=== PATIENT | female | born 1960 | race Asian ===

== ENCOUNTER 2019-10-07 13:10 | Outpatient (CLI) | payer OTHER ==
--- NOTE | 2019-10-14 10:34 | Mammography Report ---
BILATERAL DIGITAL SCREENING MAMMOGRAM 3D/2D: 10/07/2019 CLINICAL: Routine screening. Comparison is made to exam dated: 08/25/2014 mammogram - [facility]. The tissue of both breasts is heterogeneously dense. This may lower the sensitivity of mammography. No significant masses, calcifications, or other findings are seen in either breast. There has been no significant interval change. IMPRESSION: NEGATIVE There is no mammographic evidence of malignancy. A 1 year screening mammogram is recommended. This exam was interpreted at Station ID: [id number]. NOTE: For mammograms, a report in lay terms will be sent to the patient. Approximately 15% of breast malignancies will not be visualized mammographically. In the management of a palpable breast mass, a negative mammogram must not discourage biopsy of a clinically suspicious lesion. Electronically Signed By: Deandre Rios M.D. dddru/penrad:10/14/2019 08:16:15 ACR BI-RADS Category 1: Negative 3341F PARENCHYMAL PATTERN: (D) - The breast(s) demonstrate(s) heterogeneously dense fibroglandular maximo vigil. BI-RADS CATEGORY: (1) - 1 RECOMMENDATION: (ANNUAL) - Recommend routine annual screening mammography. [id number] 1 year screening LATERALITY: (B)
== END 2019-10-07 13:11 | disposition home or self-care (01) ==
LOC: DI.N 13:10
DX: Z12.31 Encounter for screening mammogram for malignant neoplasm of breast (principal)
CPT/HCPCS: 77063; 77067

== ENCOUNTER 2020-10-07 14:32 | Outpatient (CLI) | payer OTHER ==
--- NOTE | 2020-10-08 13:27 | Mammography Report ---
BILATERAL DIGITAL SCREENING MAMMOGRAM 3D/2D: 10/07/2020 CLINICAL: Routine screening. Comparison is made to exams dated: 10/07/2019 mammogram - [facility], 10/05/2018 [facility] mogram, 10/05/2017 mammogram, 09/19/2016 mammogram - [facility], 08/25/2014 mammogram - [facility], and 08/26/2013 mammogram - [facility]. The tissue of both breast s is heterogeneously dense. This may lower the sensitivity of mammography. No significant masses, calcifications, or other findings are seen in either breast. There has been no significant interval change. IMPRESSION: NEGATIVE There is no mammographic evidence of malignancy. A 1 year screening mammogram is recommended. This exam was interpreted at Station ID: [id number]. NOTE: For mammograms, a report in lay terms will be sent to the patient. Approximately 15% of breast malignancies will not be visualized mammographically. In the management of a palpable breast mass, a negative mammogram must not discourage biopsy of a clinically suspicious lesion. Electronically Signed By: Foreign Joseph M.D., jr/irma:10/07/2020 15:59:51 ACR BI-RADS Category 1: Negative 3341F PARENCHYMAL PATTERN: (D) - The breast(s) demonstrate(s) heterogeneously dense fibroglandular parpetey ma. BI-RADS CATEGORY: (1) - 1 RECOMMENDATION: (ANNUAL) - Recommend routine annual screening mammography. [id number] 1 year screening LATERALITY: (B)
== END 2020-10-07 14:33 | disposition home or self-care (01) ==
LOC: DI.N 14:32
DX: Z12.31 Encounter for screening mammogram for malignant neoplasm of breast (principal)

== ENCOUNTER 2020-11-23 14:13 | Emergency (ER) | payer OTHER ==
[2020-11-23 14:34] VITALS: BP 148/86
--- NOTE | 2020-11-23 15:22 | ED Physician Documentation ---
PD HPI SKIN - Stated complaint Stated Complaint: CYST UNDER RT ARM - Chief complaint Chief Complaint: Ext Problem - History obtained from History obtained from: Patient - History of Present Illness Timing - onset: How many days ago (several days) Timing - duration: Days (States she has had a small lump in the armpit area for several weeks without notable tenderness. It has gotten swollen red and tender over the last several days.) Timing - details: Gradual onset Location: Chest (right axillary area.) Quality / character: Painful, Discolored Associated symptoms: No: Fever, Myalgias, N/V/D Contributing factors: No: Insect bite /sting, Recent illness Similar symptoms before: Has not had sx before Review of Systems Constitutional: denies: Fever, Chills Respiratory: denies: Dyspnea, Cough PD PAST MEDICAL HISTORY - Past Medical History Cardiovascular: None Respiratory: None Neuro: None Endocrine/Autoimmune: None - Present Medications Home Medications: Ambulatory Orders Medication Instructions Recorded Confirmed Minocycline HCl 100 mg PO BID 7 Days #14 cap 11/23/20 - Allergies Allergies/Adverse Reactions: Allergies Allergy/AdvReac Type Severity Reaction Status Date / Time amoxicillin Allergy Rash Verified 11/23/20 14:32 PD ED PE NORMAL - Vitals Vital signs reviewed: Yes - General General: Alert and oriented X 3, No acute distress, Well developed/nourished - Cardiac Cardiac: RRR, No murmur - Respiratory Respiratory: Clear bilaterally - Derm Derm: Normal color, Warm and dry, Other (right anterior axillary area (just low of the axilla actually) with local swelling, redness and fluctuance, with tender. No draiange. It is 3 cm diameter and raised. ) Results - Vitals Vitals: Vital Signs - 24 hr 11/23/20 14:27 Temperature 36.8 C Heart Rate 89 Respiratory 18 Rate Blood Pressure 148/86 H O2 Saturation 97 Oxygen O2 Source Room air Procedures - Abscess I&D (location) right lower axillary area Preparation: Lidocaine 1%, With epi Incision: Incised with scalpel, Purulent drainage, Irrigated Other: Pt tolerated well, Dressing applied, Antibiotic prescribed PD MEDICAL DECISION MAKING - ED course Complexity details: considered differential, d/w patient Departure - Departure Disposition: 01 Home, Self Care Clinical Impression: Axillary abscess Condition: Stable Record reviewed to determine appropriate education?: Yes Instructions: ED Abscess IandD Prescriptions: Minocycline HCl 100 mg PO BID 7 Days #14 cap Comments: Have a dressing over the area to absorb any drainage. Warm moist towel to the area a few times a day to promote drainage in the next couple of days. Try to promote drainage from the area over the next couple of days. Doxycycline antibiotic twice daily for the next 5 to 7 days until this seems cleared. As the infection clears, there will still be some firmness of the area but it should not be red draining or tender. Subsequently you can follow-up with your primary care to discuss having the underlying cyst removed once the infection is cleared. Tylenol or ibuprofen if needed for pains. Transmitted the antibiotic prescription to [facility] pharmacy in [place]. Discharge Date/Time: 11/23/20 15:59
[2020-11-23] MEDS ORDERED: DOXYCYCLINE 100 MG TABLET PO STA (15:39)
[2020-11-23] MEDS ORDERED: ACETAMINOPHEN 325 MG TABLET PO STA (15:39)
== END 2020-11-23 15:59 | disposition home or self-care (01) ==
LOC: ED 14:13
DX: L02.411 Cutaneous abscess of right axilla (principal)
CPT/HCPCS: 10060; 99282; 99283; A9270

== ENCOUNTER 2021-10-11 10:09 | Outpatient (CLI) | payer OTHER ==
--- NOTE | 2021-10-11 13:08 | Mammography Report ---
BILATERAL DIGITAL SCREENING MAMMOGRAM 3D/2D: 10/11/2021 CLINICAL: Routine screening. Comparison is made to exams dated: 10/07/2020 mammogram, 10/07/2019 mammogram - [facility], 10/05/2018 mammogram, 10/05/2017 mammogram, 09/19/2016 mammogram - [facility], and 2014 mammogram - [facility]. Both breasts are heterogeneously dense, which may obscure small masses (category c / 51-75% glandula r tissue). No significant masses, calcifications, or other findings are seen in either breast. There has been no significant interval change. IMPRESSION: NEGATIVE There is no mammographic evidence of malignancy. A 1 year screening mammogram is recommended. Based on the Tyrer Cuzick model (a risk assessment model) the patients lifetime risk is 6.8% and her 10 year risk is 2.8%. According to the ACR, ACS, and NCCN guidelines, an annual breast MRI exam tom g with mammogram is recommended if the patients lifetime risk is 20% or greater. This exam was interpreted at Station ID: [id number]. NOTE: For mammograms, a report in lay terms will be sent to the patient. Approximately 15% of breast malignancies will not be visualized mammographically. In the management of a palpable breast mass, a negative mammogram must not discourage biopsy of a clinically suspicious lesion. Electronically Signed By: Ildefonso Cid M.D. aty/[email or web address]:10/11/2021 10:48:42 ACR BI-RADS Category 1: Negative 3341F PARENCHYMAL PATTERN: (D) - The breast(s) demonstrate(s) heterogeneously dense fibroglandular maximo vigil. BI-RADS CATEGORY: (1) - 1 RECOMMENDATION: (ANNUAL) - Recommend routine annual screening mammography. [id number] 1 year screening LATERALITY: (B)
== END 2021-10-11 10:10 | disposition home or self-care (01) ==
LOC: DI.N 10:09
DX: Z12.31 Encounter for screening mammogram for malignant neoplasm of breast (principal)